=== PATIENT | male | born 1980 | race Caucasian/White ===

== ENCOUNTER 2019-05-21 11:35 | Emergency (ER) | payer OTHER ==
[2019-05-21 12:45] VITALS: BP 143/89
[2019-05-21] MEDS ORDERED: Lidocaine 1% MPF* 2 ML VIAL INJ ONE (12:51)
--- NOTE | 2019-05-21 13:01 | UC ---
Laceration HPI - HPI Summary HPI Summary: Pt presents with c/o laceration to left index finger. Pt was using hunting knife when it "slipped" and he lacerated left index finger on dorsal aspect at mid knuckle. Pt states he is UTD with tetanus. - History Of Current Complaint Chief Complaint: UCLaceration Stated Complaint: LEFT INDEX FINGER LACERATION Time Seen by Provider: 05/21/19 12:42 Hx Obtained From: Patient Laceration Location: Finger - left index finger Mechanism Of Injury: Sharp Trauma Onset/Duration: Sudden Onset Severity: Mild Pain Intensity: 2 Aggravating Factors: Position, Movement Related History: Dominant Hand Right - Allergies/Home Medications Allergies/Adverse Reactions: Allergies Allergy/AdvReac Type Severity Reaction Status Date / Time oak Allergy Severe Anaphylatic Verified 05/21/19 12:34 Shock Penicillins Allergy Severe Anaphylatic Verified 05/21/19 12:34 Shock Home Medications: Home Medications EPINEPHrine [Epipen] 0.3 mg IJ PRN 05/21/19 [History] PMH/Surg Hx/FS Hx/Imm Hx Previously Healthy: Yes - Surgical History Surgical History: None - Family History Known Family History: Positive: Cardiac Disease - Social History Occupation: Employed Full-time Lives: With Family Alcohol Use: Occasionally Substance Use Type: None Smoking Status (MU): Never Smoked Tobacco Have You Smoked in the Last Year: No - Immunization History Most Recent Tetanus Shot: 2018 Vaccination Up to Date: Yes Review of Systems All Other Systems Reviewed And Are Negative: Yes Constitutional: Positive: Negative Skin: Positive: Other - laceration to left index finger Eyes: Positive: Negative ENT: Positive: Negative Respiratory: Positive: Negative Cardiovascular: Positive: Negative Gastrointestinal: Positive: Negative Genitourinary: Positive: Negative Motor: Positive: Negative Neurovascular: Positive: Negative Musculoskeletal: Positive: Myalgia - at lacderation site Neurological: Positive: Negative Psychological: Positive: Negative Is Patient Immunocompromised?: No Physical Exam Triage Information Reviewed: Yes Appearance: Well-Appearing Vital Signs: Initial Vital Signs Temp 97.8 F 05/21/19 12:38 Pulse 81 05/21/19 12:38 Resp 18 05/21/19 12:38 BP 143/89 05/21/19 12:38 Pulse Ox 99 05/21/19 12:38 Vital Signs Reviewed: Yes Eye Exam: Normal ENT Exam: Normal Dental Exam: Normal Neck exam: Normal Respiratory: Positive: No respiratory distress Musculoskeletal Exam: Normal Musculoskeletal: Positive: Strength Intact, ROM Intact Neurological Exam: Normal Neurological: Positive: Muscle Tone Normal Psychological Exam: Normal Skin Exam: Other - laceration at middle knuckle of left index finger Laceration Repair - Laceration Repair 1 Description: Linear Laceration Size After Repair: Length (cm) - 1, Width (mm) - 3, Depth (mm) - 3 Modified For Repair: No Anesthesia Used: 1.0% Lido Irrigation With Pressure Irrigation Device: Yes Closure Material: Sutures - 6 sutures placed of 4-0 prolene Closure Method: Single Layer Suture Of: Skin Suture Type: Prolene - 6 sutures placed of 4-0 prolene, simple interrupted Laceration Course/Dx - Differential Dx - Laceration/Wound Differental Diagnoses: Laceration, Tendon Laceration - Diagnosis Provider Diagnosis: Laceration of left index finger w/o foreign body w/o damage to nail Discharge ED - Sign-Out/Discharge Documenting (check all that apply): Patient Departure All imaging exams completed and their final reports reviewed: No Studies - Discharge Plan Condition: Stable Disposition: HOME Patient Education Materials: Care For Your Stitches (ED), Finger Laceration (ED ) Referrals: [facility] [place] [facility] [Outside] - If Needed No Primary Care Phys,NOPCP [Primary Care Provider] - Additional Instructions: Please monitor for signs or symptoms of infection that include but are not limited to increased redness, swelling, tenderness, red streaking form wound and /or fever. Please rueturn to clinic or see your PCP to have your sutures removed in 10-14 days. - Billing Disposition and Condition Condition: STABLE Disposition: Home
== END 2019-05-21 13:52 | disposition home or self-care (01) ==
LOC: UCCORT 11:35
DX: S61.211A Laceration without foreign body of left index finger without damage to nail, initial encounter (principal); Z88.0 Allergy status to penicillin; Z91.09 Other allergy status, other than to drugs and biological substances; W26.0XXA Contact with knife, initial encounter; Y92.9 Unspecified place or not applicable
CPT/HCPCS: 12001; 99201; G0463